=== PATIENT | female | born 1955 | race Caucasian/White ===

== ENCOUNTER 2017-03-30 10:04 | Emergency (ER) | payer MEDICAID ==
--- NOTE | 2017-03-30 10:07 | ED Physician Chart ---
Chief Complaint/HPI - Patient Information Date Seen:: 03/30/17 Time Seen:: 10:07 Chief Complaint:: L flank pain since this morning. History of Present Illness:: Pt came in by private auto for the above reason. Pain is characterized as sharp , constant, and localized. No definite fever. Taking po well without N/V/D. Pt has had dysuria, as well as urgency and frequency with urination. No gross hematuria. No vaginal bleeding or discharge. Allergies:: Ofloxacin Vitals:: see Nurse Note. Family MD/PCP:: Dr. Huynh LMP:: Postmenopausal. Review:: Nurse's Note Reviewed Review of Systems - Review of Systems General/Constitutional: No fever (Pt had a temperature up to 100F.), Chills (?) , No weight loss, No weakness, No edema, No loss of appetite Skin: No rash, No bruising Head: No headache, No light-headedness Eyes: No loss of vision, No pain, No diplopia ENT: No earache, No nasal drainage, No sore throat Neck: No neck pain, No swelling Cardio Vascular: No chest pain, No palpitations, No PND, No orthopnea, No edema Pulmonary: No SOB, No cough, No wheezing GI: No nausea, No vomiting, No diarrhea, Pain, No melena, No hematochezia G/U: No dysuria, No frequency, No hematuria Hogshead Dumper: No abnormal vaginal bleed Musculoskeletal: No bone or joint pain Endocrine: No polyuria, No polydipsia Psychiatric: No prior psych history Hematopoietic: No bruising, No lymphadenopathy Allergic/Immuno: No urticaria, No angioedema Neurological: No syncope, No focal symptoms, No headache Past Medical History - Past Medical History Past Medical History: Thyroid disorder Family History: Heart disease (M uncles.) Social History: Non Smoker, No Alcohol, No Drug Use, , Other (lives with her daughter.) Employment:: Self employed. Surgical History: Cholecystectomy (Laparoscopic cholecystectomy about 6 y/a.) Psychiatricy History: None Medication: Reviewed Family Medical History - Family Member mother Other Medical History: heart attack Physical Exam - Physical Examination General/Constitutional: Awake, Well-developed, well-nourished, Alert, No distress, GCS 15, Non-toxic appearing, Ambulatory Other Gen/Cons comments:: Breathes comfortably, speaks clearly, interacts normally and ambulates without difficulty. Head: Atraumatic Eyes: Lids, conjuctiva normal, PERRL, EOMI Skin: Nl inspection, No rash, No skin lesions, No ecchymosis, Well hydrated, No lymphadenopathy ENMT: External ears, nose nl, Nasal exam nl, Lips, teeth, gums nl, Oropharynx nl Neck: Nontender, Full ROM w/o pain, No JVD, No nuchal rigidity, No mass, No stridor Respiratory: Nl effort/Exclusion Cardio Vascular: RRR, No murmur, gallop, rubs GI: No organomegaly, No hernia, Normal BS's, Nondistended, No mass/bruits, No McBurney tenderness Other GI comments:: Abdomen is soft. Mild tenderness at L flank. No R/G. : No CVA tenderness (+/- L CVAT) Extremities: No tenderness or effusion, Full ROM, normal strength in all extremities, No edema, Normal digits & nails Neuro/Psych: Alert/oriented (oriented x 3), Judgement/insight normal, Mood normal, Normal gait, No focal deficits Labs/Radiology/EKG Results - Lab Results Results: Laboratory Tests 03/30/17 03/30/17 03/30/17 09:10 10:52 10:52 WBC 6.5 RBC 3.73 L Hgb 12.1 Hct 35.4 MCV 94.9 MCH 32.5 H MCHC Differential 34.3 RDW 11.6 Plt Count 256 MPV 8.1 Neutrophils % 61.5 Lymphocytes % 25.8 Monocytes % 6.8 Eosinophils % 2.1 Basophils % 3.8 H PT 10.9 INR 1.05 PTT (Actin FS) 25.9 L Sodium Potassium Chloride Carbon Dioxide Anion Gap BUN Creatinine Est GFR ( Amer) Est GFR (Non-Af Amer) BUN/Creatinine Ratio Glucose Calcium Total Bilirubin AST ALT Alkaline Phosphatase Total Protein Albumin Globulin Albumin/Globulin Ratio Urine Source CLEAN C Urine Color YELLOW Urine Clarity SL. CLOUDY Urine pH 6.5 Ur Specific [place] Urine Protein NEGATIVE Urine Glucose (UA) NEGATIVE Urine Ketones NEGATIVE Urine Blood NEGATIVE Urine Nitrate NEGATIVE Urine Bilirubin NEGATIVE Urine Urobilinogen 0.2 Ur Leukocyte Esterase SMALL H Urine RBC NONE SEEN Urine WBC 2-5 Ur Epithelial Cells OCCASIONAL Urine Bacteria NONE SEEN 03/30/17 10:52 WBC RBC Hgb Hct MCV MCH MCHC Differential RDW Plt Count MPV Neutrophils % Lymphocytes % Monocytes % Eosinophils % Basophils % PT INR PTT (Actin FS) Sodium 134 L Potassium 3.7 Chloride 105 Carbon Dioxide 23.3 Anion Gap 9.4 BUN 15 Creatinine 0.7 Est GFR ( Amer) > 60.0 Est GFR (Non-Af Amer) > 60.0 BUN/Creatinine Ratio 21.4 Glucose 134 H Calcium 9.4 Total Bilirubin 0.5 AST 21 ALT 20 Alkaline Phosphatase 72 Total Protein 6.9 Albumin 4.1 Globulin 2.8 Albumin/Globulin Ratio 1.5 Urine Source Urine Color Urine Clarity Urine pH Ur Specific [place] Urine Protein Urine Glucose (UA) Urine Ketones Urine Blood Urine Nitrate Urine Bilirubin Urine Urobilinogen Ur Leukocyte Esterase Urine RBC Urine WBC Ur Epithelial Cells Urine Bacteria - Radiology Results Results: CT abdomen and pelvis No evidence of hydronephrosis or evidence of radiopague renal stones. Moderate stool throughout the colon. Uterine calcifications likely representing calcified fibroids. If indicated follow up ultrasound may be obtained. Evidence of prior cholecystectomy. Official report per Dr. Raúl Oseguera, radiologist. ED Septic Shock - . Is Septic Shock (SBP<90, OR Lactate>4 mmol\L) present?: No Reassessment (Disposition) - Reassessment Reassessment:: 1035 Pain medication was offered, but pt declined and stated that her pain is tolerable. 1155 Pt remains stable and is not in distress. Pt still does not want any pain control. CT report just became available. CT and lab findings have been reviewed with pt. Pt requests to go home now and does not want further observation/management in hospital. Aftercare instructions have been given. Reassessment Condition:: Improved - Diagnosis Diagnosis:: Probable spontaneous passage of renal stone with early UTI, stable. - Aftercare/Follow up Instructions Aftercare/Follow-Up Instructions:: Refer to Discharge Instructions Notes:: Bedrest today. Increase oral fluid. May take Tylenol 500 mg tab one tab po q6h prn pain. Abdominal pain instruction given. Pt was instructed to strain all urines. If renal stone is isolated, save and take to PCP or lab for chemical analysis F/U with PCP Dr. Huynh in one day for recheck. Return to ER immediately if condition worsens or if any further questions/problems. A copy of CT report is to be given for pt per nursing staff to bring to PCP Dr. Huynh for further follow up. Medication Prescribed:: Macrobid 100 mg tab one tab po q12h for 7 days. D-14 R-0 - Patient Disposition Discharge/Transfer:: Home Time:: 12:15 Condition at Disposition:: Stable, Improved ED Discharge Plan - Patient Disposition Admit/Discharge/Transfer: PT DISCHARGED HOME Condition at Disposition: Stable Prescriptions: Nitrofurantoin Monohyd/M-Cryst [Macrobid 100 mg Capsule] 100 mg PO BID #14 capsule Instructions: Urinary Tract Infection, [id number]
[2017-03-30 10:45] LABS: URINE COLOR YELLOW
[2017-03-30 10:46] LABS: URINE BILIRUBIN NEGATIVE (NEGATIVE); URINE BLOOD NEGATIVE (NEGATIVE); URINE GLUCOSE (UA) NEGATIVE (NEGATIVE); URINE KETONE NEGATIVE (NEGATIVE); URINE PH 6.5; URINE PROTEIN NEGATIVE (NEGATIVE); URINE UROBILINOGEN 0.2 E.U./dL (0.2 - 1.0)
[2017-03-30 10:48] LABS: URINE BACTERIA NONE SEEN /hpf (NONE SEEN); URINE EPITHELIAL CELLS OCCASIONAL /lpf (FEW); URINE RBC NONE SEEN /hpf (0-5)
[2017-03-30 11:03] LABS: % BASOPHILS 3.8 % (0.0-2.0); % EOSINOPHILS 2.1 % (0.0-5.0); % LYMPHOCYTES 25.8 % (20.0-50.0); % MONOCYTES 6.8 % (2.0-10.0); % NEUTROPHILS 61.5 % (40.0-80.0); HEMATOCRIT 35.4 % (35.0-45.0); HEMOGLOBIN 12.1 gm/dL (11.7-15.5); MEAN CELL VOLUME 94.9 fl (81-100); MEAN CORPUSCULAR HEMOGLOBIN 32.5 pg (27.0-31.0); MEAN CORPUSCULAR HGB CONC 34.3 pg (28.0-36.0); MEAN PLATELET VOLUME 8.1 fl; NEUTROPHILE ABSOLUTE 4.1 Th/cmm (1.8-8.0); PLATELET COUNT 256 Th/cmm (150-400); RED BLOOD COUNT 3.73 Mil/cmm (3.80-5.10); RED CELL DISTRIBUTION WIDTH 11.6 % (11.5-20.0); WHITE BLOOD COUNT 6.5 Th/cmm (4.8-10.8)
[2017-03-30 11:17] LABS: INR 1.05 (0.5-1.4); PROTHROMBIN TIME (TEST) 10.9 SECONDS (9.5-11.5)
[2017-03-30 11:21] LABS: ALB/GLOB RATIO 1.5 (1.0-1.8); ALKALINE PHOSPHATASE 72 U/L (34-104); ANION GAP 9.4 (7.0-16.0); BILIRUBIN,TOTAL 0.5 mg/dL (0.3-1.0); BUN - UREA NITROGEN 15 mg/dL (7-25); BUN/CREATININE RATIO 21.4; CALCIUM SERUM 9.4 mg/dL (8.6-10.3); CARBON DIOXIDE 23.3 mEq/L (21.0-31.0); CHLORIDE 105 mEq/L (98-107); CREATININE - SERUM 0.7 mg/dL (0.6-1.2); GLUCOSE 134 mg/dL (70-105); POTASSIUM SERUM 3.7 mEq/L (3.5-5.1); SGOT 21 U/L (13-39); SGPT/ALT 20 U/L (7-52); SODIUM SERUM 134 mEq/L (136-145)
--- NOTE | 2017-03-30 11:29 | Diagnostic Imaging Report ---
CT abdomen and pelvis without intravenous contrast Indication: Left flank pain Comparison: None, Technique: Axial images were obtained from the lung bases to the bilateral proximal femurs without IV contrast. Coronal reconstructions were made. total DLP: 335, CTDI6.9 FINDINGS: Hypoventilatory changes of the lung bases are noted. Assessment of the solid organs is limited due to lack of IV contrast. Sub-CM low-density lesion of the dome of the liver is noted, too small to characterize. The patient is status post cholecystectomy. No evidence of focal splenic or pancreatic lesions. No focal adrenal lesions. No evidence of hydronephrosis or nephrolithiasis. No ureteral stones identified. Uterine calcifications are seen suggestive of fibroid calcifications. Moderate amount of stool is noted. No evidence of diverticulosis. No evidence of a appendicitis. No free air or free fluid. Minimal atherosclerosis is noted. Mild degenerative changes of the spine and pelvis are noted. Note is made of a nonspecific surgical clips along the right anterior abdominal wall omental region. IMPRESSION: No evidence of hydronephrosis or evidence of radiopaque renal stones. Moderate stool throughout the colon. Uterine calcifications likely representing calcified fibroids. If indicated follow up ultrasound may be obtained Evidence of prior cholecystectomy.
== END 2017-03-30 12:16 | disposition home or self-care (01) ==
LOC: ER 10:04
DX: R10.9 Unspecified abdominal pain (principal); R30.0 Dysuria; R35.0 Frequency of micturition; E07.9 Disorder of thyroid, unspecified; Z88.1 Allergy status to other antibiotic agents; Z90.49 Acquired absence of other specified parts of digestive tract
CPT/HCPCS: 36415-UA; 80053-TC; 81001-TC; 85025-TC; 85610-TC

== ENCOUNTER 2019-03-13 18:33 | Emergency (ER) | payer MEDICAID ==
--- NOTE | 2019-03-13 19:04 | ED Physician Chart ---
ED Chief Complaint/HPI - Patient Information Date Seen:: 03/13/19 Time Seen:: 18:59 Chief Complaint:: left flank pain History of Present Illness:: this is a 63 yo female with recurrent left flank pain without fever, vomiting but some nausea. she denies a recent fall or trauma, painful urination and diarrhea. she had her gall badder removed some years ago. she thinks that she lifts at work and thinks it might be related. Allergies:: Allergies Allergy/AdvReac Type Severity Reaction Status Date / Time codeine Allergy Verified 03/13/19 18:41 ofloxacin [From Floxin] Allergy Verified 03/30/17 10:13 Vitals:: Vital Signs - 8 hr 03/13/19 18:42 Temp 98.7 F HR 100 RR 18 BP 135/59 O2 Sat % 97 Historian:: Patient Review:: Nurse's Note Reviewed, Old Chart Reviewed ED Review of Systems - Review of Systems General/Constitutional: No fever, No chills, No weight loss, No weakness, No diaphoresis, No edema, No loss of appetite Skin: No skin lesions, No rash, No bruising Head: No headache, No light-headedness Eyes: No loss of vision, No pain, No diplopia ENT: No earache, No nasal drainage, No sore throat, No tinnitus Neck: No neck pain, No swelling, No thyromegaly, No stiffness, No mass noted Cardio Vascular: No chest pain, No palpitations, No PND, No orthopnea, No edema Pulmonary: No SOB, No cough, No sputum, No wheezing GI: No nausea, No vomiting, No diarrhea, No pain, No melena, No hematochezia, No constipation, No hematemesis G/U: No dysuria, No frequency, No hematuria, Other (left flank pain) Musculoskeletal: No bone or joint pain, No back pain, No muscle pain Endocrine: No polyuria, No polydipsia Psychiatric: No prior psych history, No depression, No anxiety, No suicidal ideation Hematopoietic: No bruising, No lymphadenopathy Allergic/Immuno: No urticaria, No angioedema Neurological: No syncope, No focal symptoms, No weakness, No paresthesia, No headache, No seizure, No dizziness, No confusion, No vertigo ED Past Medical History - Past Medical History Obtainable: Yes Past Medical History: Thyroid disorder Family History: Heart disease (mother) Social History: Non Smoker, No Alcohol, No Drug Use, Employed Surgical History: Cholecystectomy Psychiatricy History: None Medication: Reviewed ED Physical Exam - Physical Examination General/Constitutional: Awake, Well-developed, well-nourished, Alert, No distress, GCS 15, Non-toxic appearing, Ambulatory Head: Atraumatic Eyes: Lids, conjuctiva normal, PERRL, EOMI Skin: Nl inspection, No rash, No skin lesions, No ecchymosis, Well hydrated, No lymphadenopathy ENMT: External ears, nose nl, Nasal exam nl, Lips, teeth, gums nl Neck: Nontender, Full ROM w/o pain, No JVD, No nuchal rigidity, No bruit, No mass, No stridor Respiratory: Nl effort/Exclusion, Clear to Auscultation, No Wheeze/Rhonchi/Rales Cardio Vascular: RRR, No murmur, gallop, rubs, NL S1 S2 GI: No tenderness/rebounding/guarding, No organomegaly, No hernia, Normal BS's, Nondistended, No mass/bruits, No McBurney tenderness : No CVA tenderness Other comments:: left cva tenderness Extremities: No tenderness or effusion, Full ROM, normal strength in all extremities, No edema, Normal digits & nails Neuro/Psych: Alert/oriented, DTR's symmetric, Normal sensory exam, Normal motor strength, Judgement/insight normal, Mood normal, Normal gait, No focal deficits Misc: Normal back, No paraspinal tenderness ED Labs/Radiology/EKG Results - Lab Results Results: Abnormal Lab Results 03/13/19 03/13/19 03/13/19 18:55 18:55 19:07 WBC RBC Hgb Hct MCV MCH MCHC Differential RDW Plt Count MPV Neutrophils % Lymphocytes % Monocytes % Eosinophils % Basophils % PT 9.9 INR 0.95 PTT (Actin FS) 26.7 Sodium Potassium Chloride Carbon Dioxide Anion Gap BUN Creatinine Est GFR ( Amer) Est GFR (Non-Af Amer) BUN/Creatinine Ratio Glucose Calcium Total Bilirubin AST ALT Alkaline Phosphatase Troponin I Total Protein Albumin Globulin Albumin/Globulin Ratio Triglycerides Cholesterol LDL Cholesterol Direct HDL Cholesterol Urine Source CLEAN C Urine Color YELLOW Urine Clarity CLEAR Urine pH 7.0 Ur Specific [place] 1.015 Urine Protein NEGATIVE Urine Glucose (UA) NEGATIVE Urine Ketones NEGATIVE Urine Blood TRACE Urine Nitrate NEGATIVE Urine Bilirubin NEGATIVE Urine Urobilinogen 0.2 Ur Leukocyte Esterase NEGATIVE Urine RBC 2-5 Urine WBC 0-2 Ur Epithelial Cells FEW Urine Bacteria FEW Urine Opiates Screen NEGATIVE Urine Methadone Screen NEGATIVE Ur Barbiturates Screen NEGATIVE Ur Tricyclics Screen NEGATIVE Ur Phencyclidine Scrn NEGATIVE Amphetamines Screen NEGATIVE U Methamphetamines Scrn NEGATIVE U Benzodiazepines Scrn NEGATIVE U Cocaine Metab Screen NEGATIVE U Cannabinoids Screen NEGATIVE 03/13/19 03/13/19 03/13/19 19:07 19:07 19:07 WBC 7.7 RBC 3.95 Hgb 12.6 Hct 36.8 L MCV 93.1 MCH 31.8 H MCHC Differential 34.1 RDW 11.4 L Plt Count 234 MPV 8.4 Neutrophils % 68.4 Lymphocytes % 22.0 Monocytes % 7.8 Eosinophils % 1.1 Basophils % 0.7 PT INR PTT (Actin FS) Sodium 140 Potassium 3.9 Chloride 107 Carbon Dioxide 23.9 Anion Gap 13.0 BUN 12 Creatinine 0.7 Est GFR ( Amer) > 60.0 Est GFR (Non-Af Amer) > 60.0 BUN/Creatinine Ratio 17.1 Glucose 146 H Calcium 9.6 Total Bilirubin 0.5 AST 22 ALT 23 Alkaline Phosphatase 68 Troponin I 0.01 Total Protein 6.6 Albumin 4.1 Globulin 2.5 Albumin/Globulin Ratio 1.6 Triglycerides 144 Cholesterol 232 H LDL Cholesterol Direct 142 HDL Cholesterol 55 Urine Source Urine Color Urine Clarity Urine pH Ur Specific [place] Urine Protein Urine Glucose (UA) Urine Ketones Urine Blood Urine Nitrate Urine Bilirubin Urine Urobilinogen Ur Leukocyte Esterase Urine RBC Urine WBC Ur Epithelial Cells Urine Bacteria Urine Opiates Screen Urine Methadone Screen Ur Barbiturates Screen Ur Tricyclics Screen Ur Phencyclidine Scrn Amphetamines Screen U Methamphetamines Scrn U Benzodiazepines Scrn U Cocaine Metab Screen U Cannabinoids Screen - Radiology Results Results: ct scan of the abdomen and pelvis = illius and fecal impaction - EKG Interpretations EKG Time:: 20:10 Rate & Rhythm: rate= 75, sinus [place]: right axis ED Assessment - Assessment General Assessment: fecal impaction illius ED Septic Shock - . Is Septic Shock (SBP<90, OR Lactate>4 mmol\L) present?: No - <6hrs of presentation: Vital Signs: Vital Signs - 8 hr 03/13/19 18:42 Temp 98.7 F HR 100 RR 18 BP 135/59 O2 Sat % 97 ED Reassessment (Disposition) - Reassessment Reassessment Condition:: Improved - Diagnosis Diagnosis:: fecal impaction illius - Aftercare/Follow up Instructions Notes:: the patient refused to be admitted because she did not want to be transfer to another hospital. she signed out ama. - Patient Disposition Accepting Physician:: dr ramos Admitted to:: Med/Surg ([facility])
[2019-03-13 19:14] LABS: URINE SOURCE CLEAN C
[2019-03-13 19:18] LABS: URINE BILIRUBIN NEGATIVE (NEGATIVE); URINE BLOOD TRACE (NEGATIVE); URINE GLUCOSE (UA) NEGATIVE (NEGATIVE); URINE KETONE NEGATIVE (NEGATIVE); URINE LEUKOCYTE ESTERASE NEGATIVE (NEGATIVE); URINE MICROSCOPIC INDICATED? YES; URINE NITRATE NEGATIVE (NEGATIVE); URINE PROTEIN NEGATIVE (NEGATIVE); URINE UROBILINOGEN 0.2 E.U./dL (0.2 - 1.0)
[2019-03-13 19:28] LABS: INR 0.95 (0.5-1.4)
[2019-03-13 19:36] LABS: ALB/GLOB RATIO 1.6 (1.0-1.8); ALBUMIN 4.1 gm/dL (3.7-5.3); ALKALINE PHOSPHATASE 68 U/L (34-104); BILIRUBIN,TOTAL 0.5 mg/dL (0.3-1.0); BUN - UREA NITROGEN 12 mg/dL (7-25); CALCIUM SERUM 9.6 mg/dL (8.6-10.3); CARBON DIOXIDE 23.9 mEq/L (21.0-31.0); CHLORIDE 107 mEq/L (98-107); CHOLESTEROL 232 mg/dL (<200); CREATININE - SERUM 0.7 mg/dL (0.6-1.2); GFR AFRICAN-AMERICAN > 60.0 ml/min (>90); GFR NON AFRICAN-AMERICAN > 60.0 ml/min; GLUCOSE 146 mg/dL (70-105); HDL -HIGH DENSITY LIPOPROTEIN 55 mg/dL (23-92); POTASSIUM SERUM 3.9 mEq/L (3.5-5.1); SGOT 22 U/L (13-39); SGPT/ALT 23 U/L (7-52); SODIUM SERUM 140 mEq/L (136-145); TOTAL PROTEIN,SERUM 6.6 gm/dL (6.0-8.3); TRIGLYCERIDES 144 mg/dL (<150)
[2019-03-13 19:41] LABS: URINE CLARITY CLEAR (CLEAR); URINE COLOR YELLOW
[2019-03-13 19:43] LABS: URINE BACTERIA FEW /hpf (NONE SEEN); URINE EPITHELIAL CELLS FEW /lpf (FEW); URINE WBC 0-2 /hpf (0-5)
[2019-03-13 19:46] LABS: AMPHETAMINE URINE NEGATIVE (NEGATIVE); BARBITURATES URINE NEGATIVE (NEGATIVE); BENZODIAZEPINES QUAL URINE NEGATIVE (NEGATIVE); CANNABINOID THC NEGATIVE (NEGATIVE); COCAINE METABOLITE QUAL URINE NEGATIVE (NEGATIVE); METHADONE URINE NEGATIVE (NEGATIVE); METHAMPHETAMINES QUAL URINE NEGATIVE (NEGATIVE); OPIATES (MORPHINE) QUAL. URINE NEGATIVE (NEGATIVE); PHENCYCLIDINE (PCP) URINE NEGATIVE (NEGATIVE); TRICYCLICS (TCA) QUAL. URINE NEGATIVE (NEGATIVE)
[2019-03-13 19:47] LABS: HEMATOCRIT 36.8 % (41.0-60); HEMOGLOBIN 12.6 gm/dL (12-16); MEAN CELL VOLUME 93.1 fl (81-100); MEAN CORPUSCULAR HEMOGLOBIN 31.8 pg (27.0-31.0); RED BLOOD COUNT 3.95 Mil/cmm (3.80-5.10); WHITE BLOOD COUNT 7.7 Th/cmm (4.8-10.8)
[2019-03-13 19:48] LABS: % BASOPHILS 0.7 % (0.0-2.0); % EOSINOPHILS 1.1 % (0.0-5.0); % MONOCYTES 7.8 % (2.0-10.0); % NEUTROPHILS 68.4 % (40.0-80.0); LYMPHOCYTE ABSOLUTE 1.7 Th/cmm (1.5-3.0); MEAN CORPUSCULAR HGB CONC 34.1 pg (28.0-36.0); MONOCYTE ABSOLUTE 0.6 Th/cmm (0.3-1.0); NEUTROPHILE ABSOLUTE 5.2 Th/cmm (1.8-8.0); PLATELET COUNT 234 Th/cmm (150-400); RED CELL DISTRIBUTION WIDTH 11.4 % (11.5-20.0)
[2019-03-13 19:49] LABS: BASOPHILE ABSOLUTE 0.1 Th/cumm (0-0.2); EOSINOPHILE ABSOLUTE 0.1 Th/cmm (0.1-0.4)
[2019-03-13] MEDS ORDERED: Sodium Chloride 0.45% 1,000 ML IV ONE (20:03)
--- NOTE | 2019-03-14 11:16 | Diagnostic Imaging Report ---
CT abdomen and pelvis without intravenous contrast Indication: Left lower back and flank pain Comparison: CT abdomen and pelvis on 03/30/2017, Technique: Axial images were obtained from the lung bases to the bilateral proximal femurs without IV contrast. Coronal reconstructions were made. total DLP: 456, CTDI 8.5 FINDINGS: Hypoventilatory changes of the lung bases are noted. Assessment of the solid organs is limited due to lack of IV contrast. No focal hepatic lesions. The patient is status post cholecystectomy. No focal splenic or pancreatic lesions. No focal adrenal lesions. No evidence hydronephrosis or focal renal lesions. 2 cm calcification is seen within the uterus representing a fibroid changes. Moderate stool is seen throughout the colon greatest in the cecum. Appendix is unremarkable. No evidence of bowel obstruction. No free air or free fluid. Osseous structures demonstrate no acute abnormalities. Degenerative changes of the spine are noted. Mild atherosclerosis is noted. IMPRESSION: Moderate stool greatest within the cecum. No evidence of hydronephrosis or nephrolithiasis. Evidence of prior cholecystectomy. Degenerative changes spine Small calcified fibroid of the uterus. Mild atherosclerosis.
== END 2019-03-13 20:43 | disposition left against medical advice (07) ==
LOC: ER 18:33
DX: K56.41 Fecal impaction (principal); K56.7 Ileus, unspecified; E07.9 Disorder of thyroid, unspecified; Z88.5 Allergy status to narcotic agent; Z90.49 Acquired absence of other specified parts of digestive tract; Z88.8 Allergy status to other drugs, medicaments and biological substances
CPT/HCPCS: 36415-UA; 80053-TC; 80061-TC; 80307; 81001-TC; 84443-TC; 84484-TC; 85025-TC; 85610-TC; 85730-TC; 93005